=== PATIENT | female | born 1990 | race Caucasian/White ===

== ENCOUNTER 2022-03-16 17:41 | Emergency (ER) | payer OTHER ==
[2022-03-16] MEDS ORDERED: Ibuprofen 200 MG TAB ONE (18:05)
== END 2022-03-16 19:07 | disposition home or self-care (01) ==
LOC: ERS 17:41
DX: S93.401A Sprain of unspecified ligament of right ankle, initial encounter (principal); J44.9 Chronic obstructive pulmonary disease, unspecified; I10 Essential (primary) hypertension; R73.03 Prediabetes; Z79.899 Other long term (current) drug therapy